=== PATIENT | female | born 1990 | race Caucasian/White ===

== ENCOUNTER 2023-05-29 15:35 | Emergency (ER) | payer OTHER, SELFPAY ==
--- NOTE | ~2023-05-29 | CT_ITS ---
EXAMINATION: CT abdomen pelvis w con DATE: 05/29/2023 20:09 INDICATION: Right lower quadrant abdominal pain TECHNIQUE: Computed tomography (CT) of the abdomen and pelvis was performed with 100 mL Omnipaque-350 intravenous contrast. Automated exposure control and iterative reconstruction technique were employe d. The dose-length product was 1014.36 mGy-cm. COMPARISON: None FINDINGS: Lung bases are clear. Heart size is normal. No pericardial or pleural effusion. Liver, gallbladder, s pleen, pancreas, bilateral adrenal glands and right kidney are normal. The left kidney is positioned more caudally in the left lower quadrant and rotated with the hilum facing anterolaterally. Bladder, uterus and bilateral adnexa are unremarkable aside from a millimeter left ovarian cyst/follicle. Ther e are some fluid scattered throughout the colon consistent with diarrhea. Small bowel and appendix ar e normal. Small fat-containing umbilical hernia. No free intraperitoneal gas or fluid. No pathologica lly enlarged abdominal or pelvic lymphadenopathy. Bones are unremarkable. IMPRESSION: 1. No acute intra-abdominal/pelvic process. Specifically the appendix is normal. Reviewed, dictated and finalized at location A. NRY SUPERVISOR IMPRESSION: 1. No acute intra-abdominal/pelvic process. Specifically the appendix is normal .
--- NOTE | ~2023-05-29 | US_ITS ---
EXAMINATION: US pelvic complete w TV DATE: 05/29/2023 18:44 INDICATION: Right lower quadrant abdominal pain and suspected torsion TECHNIQUE: Multiple transabdominal and endovaginal sonographic images of the pelvis were obtained. COMPARISON: None. FINDINGS: The uterus measures 8.1 x 3.9 x 5.3 cm. The endometrial complex measures 1 mm in thickness. There is a 11 x 2 x 14 mm anechoic fluid collection within the endometrial canal at the fundus. There is a se cond smaller 9 x 6 x 3 mm anechoic fluid collection within the endometrial canal. Lower uterine segme nt immediately deep to an anterior section scar. There is heterogeneous echogenicity to the myometrium with a few subtle echogenic and shadowing striations and multiple scattered echogenic nickolas nds suspicious for diffuse adenomyosis. The right ovary measures 2.6 x 1.6 x 1.8 cm. The left ovary m easures 3.6 x 1.7 x 2.5 cm. 1 cm anechoic cyst/follicle at the left ovary. Vascular flow with arteria l waveforms identified in both ovaries on color Doppler. There is small amount of anechoic free fluid in the cul-de-sac. IMPRESSION: 1. Bilateral ovaries appear unremarkable with normal vascular flow with arterial waveforms at both ov ty on color Doppler. 2. Heterogeneous appearance to the myometrium with appearance suggesting possible diffuse adenomyosis . Reviewed, dictated and finalized at location A. MBLER BRAZER IMPRESSION: 1. Bilateral ovaries appear unremarkable with normal vascular flow with arteria l waveforms at both ovaries on color Doppler. 2. Heterogeneous appearance to the myometrium with appearance suggesting possib le diffuse adenomyosis.
[2023-05-29 15:37] VITALS: BP 137/80; PULSE 73; RESP 16; TEMP 36.4; O2SAT 100
[2023-05-29 17:18] LABS: Basophils Percent Auto 0.6 % (0.2-1.2); Eosinophils Absolute Auto 0.2 K/mm3 (0-0.3); Eosinophils Percent Auto 2.6 % (0-4.4); Hematocrit 38.7 % (37.0-47.0); Immature Granulocyte Absolute 0.01 K/mm3 (0.00-0.031); Immature Granulocyte Percent A 0.2 % (0-0.5); Lymphocytes Absolute Auto 1.88 K/mm3 (0.9-3.2); Lymphocytes Percent Auto 30.2 % (18.3-44.2); Mean Corpuscular Hemoglobin 26.8 pg (26-34); Mean Corpuscular Volume 86.6 fl (80-100); Mean Platelet Volume 10.1 fl (7.4-10.4); Monocytes Absolute Auto 0.4 K/mm3 (0.1-0.6); Monocytes Percent Auto 5.8 % (2.6-8.5); Neutrophils Absolute Auto 3.8 K/mm3 (1.3-6.7); Neutrophils Percent Auto 60.6 % (45.5-73.1); Platelet Count Result 296 k/mm3 (150-375); Red Blood Count 4.47 M/mm3 (4.2-5.4); Red Cell Distribution Width 13.8 % (11.5-14.5); White Blood Count 6.2 K/mm3 (4.5-10.0)
[2023-05-29 17:19] LABS: Appearance Urine Clear (Clear); Bilirubin Urine Negative (Negative); Blood Urine Negative (Negative); Color Urine Yellow (Yellow); Glucose Urine UA Negative (Negative); Ketones Urine Negative (Negative); Leukocyte Esterase Ur Negative LEU/UL (Negative); Nitrate Urine Negative (Negative); Protein Urine Negative (Negative); Specific Grav Ur 1.005 (1.001-1.035); Urobilinogen Urine 0.2 mg/dL (<2.0); pH Urine 6.5 (5.0-9.0)
[2023-05-29 17:22] LABS: Add Urine Microscopic? NO
[2023-05-29 17:26] LABS: Alanine Aminotransferase 51 U/L (6-35); Albumin Level 4.6 g/dL (3.5-5.1); Alkaline Phosphatase 65 U/L (38-126); Anion Gap 6 mmol/L (8-16); Aspartate Amino Transferase 36 U/L (14-36); Bilirubin,Total 0.3 mg/dL (0.2-1.3); Blood Urea Nitrogen 16 mg/dL (7-17); Calcium 9.6 mg/dL (8.4-10.2); Carbon Dioxide 26 mmol/L (22-30); Chloride 106 mmol/L (98-107); Estimated Glomerular Filt Rate > 60; Glucose 94 mg/dL (65-110); Lipase 121 U/L (23-300); Sodium 138 mmol/L (137-145)
[2023-05-29 17:37] VITALS: BP 120/82; PULSE 62; RESP 15; O2SAT 100
--- NOTE | 2023-05-29 17:49 | ED.ABDPAIN ---
HPI - Abdominal Pain General Chief Complaint: Abdominal Pain Stated Complaint: RLQ pain Time Seen by Provider: 05/29/23 17:36 History of Present Illness HPI narrative: Patient is a 32-year-old female who presents to the emergency department this afternoon complaining of right lower quadrant abdominal pain. Patient states that the pain started yesterday and has been intermittent. She decided to wait it out to see if it go away, however, she woke up this morning and the pain was still there and she finally decided to come to the emergency department for further evaluation. Patient denies any similar pain in the past. She denies any urinary symptoms including hematuria or dysuria. Denies any urinary frequency. Denies any nausea or vomiting. The remainder of the history of present illness and review of systems negative unless stated otherwise in HPI. Related Data Allergies Allergy/AdvReac Type Severity Reaction Status Date / Time Sulfa (Sulfonamide Allergy Unknown Verified 05/29/23 17:37 Antibiotics) Review of Systems Review of Systems: All systems are reviewed and are negative unless stated otherwise in the HPI. PMFSH Comments Denies any past medical or surgical history, denies any significant family history and denies any tobacco use, alcohol abuse or illicit drug use. Exam Narrative: General: Alert, awake, afebrile, in no acute distress. HEENT: PERRL, no rhinorrhea, no post nasal drip, oropharynx clear. Neck: Trachea midline, no JVD, no lymphadenopathy. Cardiovascular: Regular rate and rhythm, no murmurs, rubs or gallops, no peripheral edema. Respiratory: Clear to auscultation bilaterally, no tachypnea, no wheezing, no rhonchi, no rubs, no respiratory distress. Abdomen: Soft, non reproducible right lower quadrant abdominal pain, nondistended, no rebound, no guarding, no peritoneal signs. Musculoskeletal: No joint swelling or deformity, normal muscle tone. Skin: No rashes or petechia, no signs of infection. Psychiatric: Alert and oriented, normal behavior and judgment for situation. Neurological: Alert and oriented to person, place, and time. Follows all commands. No focal deficits, speech is clear and fluent. Course Vital Signs Vital signs: Vital Signs Temperature 97.6 F 05/29/23 15:37 Pulse Rate 73 05/29/23 15:37 Respiratory Rate 16 05/29/23 15:37 Blood Pressure 137/80 05/29/23 15:37 Pulse Oximetry 100 05/29/23 15:37 Oxygen Delivery Room Air 05/29/23 15:37 Temperature 97.6 F 05/29/23 15:37 Pulse Rate 62 05/29/23 17:37 Respiratory Rate 15 05/29/23 17:37 Blood Pressure 120/82 05/29/23 17:37 Pulse Oximetry 100 05/29/23 17:37 Oxygen Delivery Room Air 05/29/23 15:37 MDM - Abdominal Pain MDM Narrative Medical decision making narrative: The patient was evaluated by myself in the emergency department. History is obtained from patient who is an independent historian and physical exam was performed. External medical records were reviewed at this time. IV was established and pertinent tests were ordered. Laboratory results obtained revealing no acute process. Imaging studies obtained included pelvic ultrasound with transvaginal which was independently interpreted by me revealing no evidence of ovarian torsion, possible adenomyosis. CT abdomen pelvis with IV contrast was obtained at this time and independently reviewed by me revealing no acute process, no evidence of appendicitis. Patient was provided with a copy of her ultrasound result. Differential diagnosis considerations include ovarian torsion, appendicitis, and diverticulitis. Comorbidities impacting this visit include none. I have evaluated and discussed social determinants of health with the patient that could potentially impact subsequent diagnosis and treatment plans. On repeat assessment of the patient, reevaluation revealed that the patient is doing well and is in no acute distress. Patient sy
--- NOTE | 2023-05-29 19:12 | PC.NURSE ---
Report given to Gaye LEE, all questions answered
[2023-05-29 20:51] VITALS: BP 122/80; PULSE 67; RESP 20; TEMP 36.4; O2SAT 99
== END 2023-05-29 20:51 | disposition home or self-care (01) ==
PROVIDERS: Emergency Provider Emergency Medicine; PCP Internal Medicine
DX: N80.03 Adenomyosis of the uterus (principal)
CPT/HCPCS: 36415; 74177; 76830; 76856; 80053; 81003; 81025; 83690; 85025; 99284; Q9967